=== PATIENT | female | born 1965 | race Caucasian/White ===

== ENCOUNTER 2017-01-25 05:40 | Day surgery (SDC) | payer BC ==
[2017-01-25] MEDS ORDERED: Versed 2 MG/2 ML Injection IV ONE (05:41)
[2017-01-25] MEDS ORDERED: DIPRIVAN 200 MG/20 ML IV ONE (05:41)
[2017-01-25] MEDS ORDERED: Lactated Ringers 1,000 ML IV SCH (06:00)
[2017-01-25] MEDS ORDERED: Lactated Ringers 1,000 ML IV ONE (06:21)
[2017-01-25 09:38] VITALS: O2SAT 98
[2017-01-25 09:50] VITALS: BP 111/76; PULSE 70
--- NOTE | 2017-01-25 12:35 | OP ---
SURGERY DATE/TIME: 01/25/2017 0807 PREOPERATIVE DIAGNOSIS: Screening exam. POSTOPERATIVE DIAGNOSIS: Normal colon. PROCEDURE: Colonoscopy. SURGEON: Dr. Jimenez. ANESTHESIA: MAC. Medications given by anesthesia department. HISTORY: The patient is a 51 year-old white female presenting now for colonoscopic evaluation. She was appraised of the risks of the procedure including the risk of perforation, phlebitis, untoward reaction to medication, bleeding and missed lesions. The patient verbalized her understanding and desired to have the procedure performed. DESCRIPTION OF PROCEDURE: The patient was given the medications by the anesthesia department. She had continuous pulse oximetry, ECG monitoring, intermittent blood pressure monitoring, and tidal CO2 monitoring during the examination. She was placed in the left lateral decubitus position. A digital rectal examination was performed and revealed normal anal sphincter tone and no masses. The flexible Olympus pediatric colonoscope was used to intubate the rectum. A view of the colon was developed sequentially to the cecum. Upon insertion and withdrawal, including a retroflex view in the rectum, no mucosal lesions were encountered. The scope was removed from the patient who tolerated the procedure well and was sent back to OP recovery in good condition. The prep was noted to be fair. It was also noted that the colon is very tortuous and difficult to examination.
== END 2017-01-25 09:59 | disposition home or self-care (01) ==
LOC: SDC 05:40
PROVIDERS: ATTEND Family Medicine
PROC: 0DJD8ZZ Inspection of Lower Intestinal Tract, Via Natural or Artificial Opening Endoscopic (ICD-10-PCS; principal; 2017-01-25)
DX: Z12.11 Encounter for screening for malignant neoplasm of colon (principal)
CPT/HCPCS: 00810; J2250; J2704

== ENCOUNTER 2021-05-02 11:22 | Inpatient (IN) | payer MEDICARE, BC ==
[2021-05-02] MEDS ORDERED: Sodium Chloride 0.9% 1000 ML 1,000 ML IV STA ×2 (11:48→14:15)
[2021-05-02] MEDS ORDERED: solu-MEDROL 125 MG, Sterile H2O 10 ml 2 ML IV ONE ×2 (11:48)
[2021-05-02] MEDS ORDERED: Sodium Chloride 0.9% 1000 ML 1,000 ML ONE ×2 (11:53→14:08)
[2021-05-02] MEDS ORDERED: solu-MEDROL ONE (11:53)
[2021-05-02] MEDS ORDERED: Sterile H2O 10 ml IJ ONE (11:53)
[2021-05-02 12:01] LABS: Hematocrit 47.2 % (35-47); Hemoglobin 15.9 gm/dl (12.0-16.0); Mean Cell Volume 90.4 fl (78-100); Mean Corpuscular Hemoglobin 30.5 pg (26-32); Mean Corpuscular Hgb Concent. 33.7 g/dl (32-36); Mean Platelet Volume 10.2 fl (7.5-11.0); Platelet Count 215 K/mm3 (150-450); Red Blood Count 5.22 M/mm3 (4.1-5.4); Red Cell Distribution Width 13.1 % (11.5-14.0); White Blood Count 4.6 K/mm3 (4.0-10.5)
--- NOTE | 2021-05-02 12:12 | XRAY ---
Indication: Cough. Suspect Covid 19. The graft comparison: February 22, 2020. Portable chest demonstrates new subtle right mid to lower lung hazy interstitial alveolar opacity without consolidation/large effusion. Stable minimal left base fibrosis/scarring. Remaining heart and upper lungs unremarkable. Bony thorax intact again with mild osteopenia and degenerative changes.
[2021-05-02 12:40] LABS: INFLUENZA A NEGATIVE (NEGATIVE); INFLUENZA B NEGATIVE (NEGATIVE)
[2021-05-02 12:49] LABS: INR 1.04 (0.8-3.0); PROTIME 12.3 SECONDS (9.4-12.5)
--- NOTE | 2021-05-02 13:53 | ERPHSYRPT ---
- History of Present Illness Time Seen by Provider: 05/02/21 11:55 Source: patient Exam Limitations: clinical condition Patient Subjective Stated Complaint: pt sent from clinic for [facility], pt co weakness,not eating or drinking well, cough. pt states she has not felt well for over a week, Triage Nursing Assessment: pt arrived per wc. alert, weak appearing, able to get self undressed, resp easy, occ cough, face mask in place, no edema noted Physician History: Patient is a 56-year-old female who presents with multiple complaints. She tested positive for COVID over a week ago she complains of no appetite no fluid intake or at least reduced fluid intake weakness cough started today she has not checked her fever but she has had chills she was noted to be hypotensive at the [facility] she was sent here directly from the clinic. Timing/Duration: day(s) (10) Cough Quality/Degree: productive cough Modifying Factors: Improves With: coughing Associated Symptoms: chills, chest pain/soreness, cough, headache, nasal congestion, nasal drainage, shortness of breath, wheezing Allergies/Adverse Reactions: No Known Drug Allergies Allergy (Verified 05/02/21 11:52) Home Medications: Venlafaxine HCl [Effexor] 150 mg PO DAILY 04/10/13 [History] Estradiol [Estrace] 1 ea DAILY 05/02/21 [History] Methimazole 5 ea DAILY 05/02/21 [History] Semaglutide [Ozempic] 1 ea UD 05/02/21 [History] clonazePAM [Clonazepam] 1 ea DAILY 05/02/21 [History] Hx Tetanus, Diphtheria Vaccination/Date Given: No Hx Influenza Vaccination/Date Given: No Hx Pneumococcal Vaccination/Date Given: No Immunizations Up to Date: Yes Travel Risk - International Travel Have you traveled outside of the country in past 3 weeks: No - Coronavirus Screening Are you exhibiting any of the following symptoms?: Yes Symptoms: Cough: New Onset, Headaches/Body Aches/Fatigue Close contact with a COVID-19 positive Pt in past 14-21 Days: No - Vaccine Status Have you recieved a Covid-19 vaccination: No - Review of Systems Constitutional: Chills, Lethargy, Malaise, No Fever Eyes: No Symptoms Ears, Nose, & Throat: Nose Congestion, Nose Discharge Respiratory: Cough, Dyspnea Cardiac: Chest Pain, No Edema, No Syncope Abdominal/Gastrointestinal: Nausea, No Abdominal Pain, No Vomiting, No Diarrhea Genitourinary Symptoms: No Dysuria Musculoskeletal: No Back Pain, No Neck Pain Skin: No Rash Neurological: No Dizziness, No Focal Weakness, No Sensory Changes Psychological: No Symptoms Endocrine: No Symptoms All Other Systems: Reviewed and Negative - Past Medical History Pertinent Past Medical History: Yes Neurological History: No Pertinent History ENT History: No Pertinent History Cardiac History: No Pertinent History Respiratory History: No Pertinent History Endocrine Medical History: No Pertinent History Musculoskeletal History: No Pertinent History GI Medical History: No Pertinent History History: No Pertinent History Psycho-Social History: Anxiety, Depression Female Reproductive Disorders: No Pertinent History Other Medical History: hx of skin cancer. - Past Surgical History Past Surgical History: Yes Neuro Surgical History: No Pertinent History Cardiac: No Pertinent History Respiratory: No Pertinent History Gastrointestinal: No Pertinent History Genitourinary: No Pertinent History Musculoskeletal: No Pertinent History Female Surgical History: Section, Hysterectomy - Social History Smoking Status: Never smoker Exposure to second hand smoke: No Drug Use: none Patient Lives Alone: No - Female History Hx Last Menstrual Period: post - Nursing Vital Signs Nursing Vital Signs: Initial Vital Signs Temperature 97.8 F 05/02/21 11:41 Pulse Rate 75 05/02/21 11:41 Respiratory Rate 20 05/02/21 11:41 Blood Pressure 95/63 05/02/21 11:41 O2 Sat by Pulse Oximetry 97 05/02/21 11:41 Pain Scale Pain Intensity 5 - Physical Exam General Appearance: moderate distress Eye Exam: PERRL/EOMI, eyes nml inspection Ears, Nose, Throat Exam: normal ENT inspection, TMs normal, pharynx normal, moist mucous membranes Neck Exam: normal inspection, non-tender, supple, full range of motion Respiratory Exam: diminished breath sounds, crackles/rales, rhonchi, wheezing Cardiovascular Exam: regular rate/rhythm, normal heart sounds Gastrointestinal/Abdomen Exam: soft, No tenderness Back Exam: normal inspection, No CVA tenderness, No vertebral tenderness Extremity Exam: normal inspection, normal range of motion Neurologic Exam: alert, oriented x 3, cooperative, normal mood/affect, sensation nml, No motor deficits SpO2: 94 - Course Nursing assessment & vital signs reviewed: Yes - Radiology Exams Chest X-ray Interpretation: Reviewed by me (There is a developing pneumonia in the right middle lower lobe) Ordered Tests: Active Orders 24 hr Category Date Time Status EKG-ER Only STAT Care 05/02/21 11:48 Active IV Insertion STAT Care 05/02/21 11:48 Active CHEST 1 VIEW (PORTABLE) Stat Exams 05/02/21 11:49 Completed BLOOD CULTURE Stat Lab 05/02/21 11:45 Received CBC W DIFF Stat Lab 05/02/21 11:45 Completed CMP Stat Lab 05/02/21 11:45 Received D-DIMER QUANTITATIVE Stat Lab 05/02/21 11:45 Received INFLUENZA A+B NATHAN Stat Lab 05/02/21 12:06 Completed Lactic Acid Stat Lab 05/02/21 11:48 Completed MAGNESIUM Stat Lab 05/02/21 11:45 Received Manual Differential NC Stat Lab 05/02/21 11:45 Completed NT PRO BNP Stat Lab 05/02/21 11:45 Received PROTIME WITH INR Stat Lab 05/02/21 11:45 Received TROPONIN Q3H Lab 05/02/21 11:45 Received TROPONIN Q3H Lab 05/02/21 15:00 Ordered TROPONIN Q3H Lab 05/02/21 18:00 Ordered TROPONIN Q3H Lab 05/02/21 21:00 Ordered TROPONIN Q3H Lab 05/03/21 00:00 Ordered UA W/RFX UR CULTURE Stat Lab 05/02/21 11:49 Ordered Medication Summary Discontinued Medications Generic Name Dose Route Start Last Admin Trade Name Freq PRN Reason Stop Dose Admin Methylprednisolone Sodium 0 mg 05/02/21 11:48 05/02/21 11:55 Succinate 125 mg/ Sterile IV 05/02/21 11:49 125 mg Water 2 ml STAT ONE Administration Sodium Chloride 1,000 mls @ 999 mls/hr 05/02/21 11:48 05/02/21 13:14 Sodium Chloride 0.9% 1000 Ml IV 05/02/21 12:48 Infused .Q1H1M STA Infusion Sodium Chloride Confirm 05/02/21 11:53 Sodium Chloride 0.9% 1000 Ml Administered 05/02/21 11:54 Dose 1,000 mls @ ud .ROUTE .STK-MED ONE Methylprednisolone Sodium Succinate Confirm 05/02/21 11:53 Methylprednis Sod Succ 125 Mg/2 Ml Vial Administered 05/02/21 11:54 Dose 125 mg .ROUTE .STK-MED ONE Sterile Water Confirm 05/02/21 11:53 Water For Injection,Sterile 10 Ml Vial Administered 05/02/21 11:54 Dose 10 ml IJ .STK-MED ONE Lab/Rad Data: Laboratory Result Diagrams 05/02/21 11:45 Laboratory Results 05/02/21 05/02/21 05/02/21 Range/Units 12:06 11:48 11:45 WBC 4.6 (4.0-10.5) K/mm3 RBC 5.22 (4.1-5.4) M/mm3 Hgb 15.9 (12.0-16.0) gm/dl Hct 47.2 H (35-47) % MCV 90.4 (78-100) fl MCH 30.5 (26-32) pg MCHC 33.7 (32-36) g/dl RDW 13.1 (11.5-14.0) % Plt Count 215 (150-450) K/mm3 MPV 10.2 (7.5-11.0) fl Lactic Acid 1.4 (0.4-2.0) Influenza Type A Ag NEGATIVE (NEGATIVE) Influenza Type B Ag NEGATIVE (NEGATIVE) - Progress Progress: unchanged Air Movement: fair Blood Culture(s) Obtained: Yes Antibiotics given: Yes Discussed with : Serafin Will see patient in: hospital (full admit) - Departure Departure Disposition: In-patient Admission Clinical Impression: Pneumonia due to COVID-19 virus Condition: Fair Critical Care Time: No Referrals: BEKAH AYALA, [Primary Care Provider] - Follow up/PCP as directed
[2021-05-02] MEDS ORDERED: Zithromax 500 MG/ 250 ML NaCl Premix 500 MG/250 ML IVPB IV ONE (14:11)
[2021-05-02] MEDS ORDERED: ENOXAPARIN SODIUM SQ ONE (14:11)
[2021-05-02] MEDS: ENOXAPARIN SODIUM SQ SCH (14:12)
[2021-05-02] MEDS: Zithromax 500 MG/ 250 ML NaCl Premix 500 MG/250 ML IVPB IV SCH (14:13)
[2021-05-02 15:30] LABS: Appearance SLIGHTLY CLOUDY (CLEAR); Bacteria FEW /HPF (NEGATIVE); Bilirubin NEGATIVE (NEGATIVE); Blood NEGATIVE Ery/ul (0-5); Epithelial Cells FEW /HPF (FEW); Glucose NEGATIVE (NEGATIVE); Ketones TRACE (NEGATIVE); Leukocyte Esterase NEGATIVE (NEGATIVE); Mucus SLIGHT /HPF (NEGATIVE); Nitrite NEGATIVE (NEGATIVE); Protein,Urine Dip 30 (Negative); RBC 0-2 /HPF (0-2); Specific Gravity 1.015 (1.005-1.025); Urobilinogen NEGATIVE mg/dL (0-1); WBC 26-50 /HPF (0-5)
[2021-05-02] MEDS ORDERED: Ativan 2 MG/1 ML VIAL IV PRN (16:38)
[2021-05-02] MEDS ORDERED: Zofran 4 MG/2 ML VIAL IV PRN (16:38)
[2021-05-02] MEDS ORDERED: FEVERALL 650 MG PR PRN (16:38)
--- NOTE | 2021-05-02 17:27 | PCM.HP ---
History of Present Illness - Chief Complaint Chief Complaint: shortness off breath for 2-3 days History of Present Illness: is a 56 year old female. who presents with multiple complaints. She tested positive for COVID over a week ago she complains of no appetite no fluid intake or at least reduced fluid intake weakness cough started today she has not checked her fever but she has had chills she was noted to be hypotensive at the [facility] she was sent here directly from the clinic. Timing/Duration: day(s) (10) Cough Quality/Degree: productive cough Modifying Factors: Improves With: coughing Associated Symptoms: chills, chest pain/soreness, cough, headache, nasal congestion, nasal drainage, shortness of breath, wheezing - Review of Systems Constitutional: No Fever, No Chills Eyes: No Symptoms Ears, Nose, & Throat: No Symptoms Respiratory: Orthopnea, Short Of Breath, Wheezing, No Cough Cardiac: No Chest Pain, No Edema, No Syncope Abdominal/Gastrointestinal: Nausea, Appetite Changes, No Abdominal Pain, No Vomiting, No Diarrhea Genitourinary Symptoms: No Dysuria Musculoskeletal: No Back Pain, No Neck Pain Skin: No Rash Neurological: No Dizziness, No Focal Weakness, No Sensory Changes Psychological: No Symptoms Endocrine: No Symptoms Hematologic/Lymphatic: No Symptoms Immunological/Allergic: No Symptoms Medications & Allergies Home Medications: Home Medication List Venlafaxine HCl [Effexor] 150 mg PO DAILY 04/10/13 [History Confirmed 05/02/21] Estradiol [Estrace] 1 ea PO DAILY 05/02/21 [History Confirmed 05/02/21] Methimazole 2.5 ea PO DAILY 05/02/21 [History Confirmed 05/02/21] Omeprazole Magnesium [Prilosec Otc] 20 mg PO DAILY 05/02/21 [History Confirmed 05/02/21] Trazodone HCl 50 mg [Desyrel 50 mg] 100 mg PO QHS 05/02/21 [History Confirmed 05/02/21] clonazePAM [Clonazepam] 1 mg PO TID 05/02/21 [History Confirmed 05/02/21] Allergies/Adverse Reactions: Allergies Allergy/AdvReac Type Severity Reaction Status Date / Time No Known Drug Allergies Allergy Verified 05/02/21 16:34 - Past Medical History Past Medical History: Yes Neurological History: No Pertinent History ENT History: No Pertinent History Cardiac History: No Pertinent History Respiratory History: No Pertinent History Endocrine Medical History: Hyperthyroidism Musculoskelatal History: No Pertinent History GI Medical History: GERD History: No Pertinent History Pyscho-Social History: Anxiety, Depression Reproductive Disorders: No Pertinent History Comment: hx of skin cancer. - Female History Hx Last Menstrual Period: post - Past Surgical History Past Surgical History: Yes Neuro Surgical History: No Pertinent History Cardiac History: No Pertinent History Respiratory Surgery: No Pertinent History GI Surgical History: No Pertinent History Genitourinary Surgical Hx: No Pertinent History Musculskeletal Surgical Hx: No Pertinent History Female Surgical History: Section, Hysterectomy Other Surgical History: Broken nose with surgery, Left shoulder plate due to broken scapula - Social History Smoking Status: Never smoker Exposure to second hand smoke: No Alcohol: Rarely Drug Use: none - Physical Exam Vital Signs: Vital Signs - 24 hr Temp Pulse Resp BP Pulse Ox 05/02/21 17:12 76 18 95 05/02/21 13:52 94 L 05/02/21 13:14 72 22 101/73 94 L 05/02/21 11:51 20 96 05/02/21 11:41 97.8 F 75 20 95/63 97 General Appearance: no apparent distress, alert Neurologic Exam: alert, oriented x 3, cooperative, normal mood/affect, nml cerebellar function, nml station & gait, sensation nml, No motor deficits Eye Exam: PERRL/EOMI, eyes nml inspection Ears, Nose, Throat Exam: normal ENT inspection, TMs normal, pharynx normal, moist mucous membranes Neck Exam: normal inspection, non-tender, supple, full range of motion Respiratory Exam: diminished breath sounds, crackles/rales, rhonchi, wheezing, No respiratory distress Cardiovascular Exam: regular rate/rhythm, normal heart sounds, normal peripheral pulses Gastrointestinal/Abdomen Exam: soft, normal bowel sounds, No tenderness, No mass Back Exam: normal inspection, normal range of motion, No CVA tenderness, No vertebral tenderness Extremity Exam: normal inspection, normal range of motion, pelvis stable Skin Exam: normal color, warm, dry, No rash Lymphatic Exam: No adenopathy Results - Labs Lab/Micro Results: Lab Results-Last 24 Hours 05/02/21 05/02/21 05/02/21 Range/Units 11:45 11:45 11:45 WBC 4.6 (4.0-10.5) K/mm3 RBC 5.22 (4.1-5.4) M/mm3 Hgb 15.9 (12.0-16.0) gm/dl Hct 47.2 H (35-47) % MCV 90.4 (78-100) fl MCH 30.5 (26-32) pg MCHC 33.7 (32-36) g/dl RDW 13.1 (11.5-14.0) % Plt Count 215 (150-450) K/mm3 MPV 10.2 (7.5-11.0) fl PT 12.3 (9.4-12.5) SECONDS INR 1.04 (0.8-3.0) D-Dimer 726 H* (215-500) ng/mL Glucose CANAL 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 Lactic Acid (0.4-2.0) Troponin I (0.000-0.034) ng/mL Urine Color (YELLOW) Urine Appearance (CLEAR) Urine pH (5-6) Ur Specific [place] (1.005-1.025) Urine Protein (Negative) Urine Ketones (NEGATIVE) Urine Blood (0-5) Sarkis/ul Urine Nitrite (NEGATIVE) Urine Bilirubin (NEGATIVE) Urine Urobilinogen (0-1) mg/dL Ur Leukocyte Esterase (NEGATIVE) Urine WBC (Auto) (0-5) /HPF Urine RBC (Auto) (0-2) /HPF U Hyaline Cast (Auto) (0-2) /LPF U Epithel Cells (Auto) (FEW) /HPF Urine Bacteria (Auto) (NEGATIVE) /HPF Urine Mucus (Auto) (NEGATIVE) /HPF Urine Culture Reflexed (NO) Urine Glucose (NEGATIVE) mg/dL Influenza Type A Ag (NEGATIVE) Influenza Type B Ag (NEGATIVE) 05/02/21 05/02/21 05/02/21 Range/Units 11:45 11:48 12:06 WBC (4.0-10.5) K/mm3 RBC (4.1-5.4) M/mm3 Hgb (12.0-16.0) gm/dl Hct (35-47) % MCV (78-100) fl MCH (26-32) pg MCHC (32-36) g/dl RDW (11.5-14.0) % Plt Count (150-450) K/mm3 MPV (7.5-11.0) fl PT (9.4-12.5) SECONDS INR (0.8-3.0) D-Dimer (215-500) ng/mL Glucose Lactic Acid 1.4 (0.4-2.0) Troponin I < 0.012 (0.000-0.034) ng/mL Urine Color (YELLOW) Urine Appearance (CLEAR) Urine pH (5-6) Ur Specific [place] (1.005-1.025) Urine Protein (Negative) Urine Ketones (NEGATIVE) Urine Blood (0-5) Sarkis/ul Urine Nitrite (NEGATIVE) Urine Bilirubin (NEGATIVE) Urine Urobilinogen (0-1) mg/dL Ur Leukocyte Esterase (NEGATIVE) Urine WBC (Auto) (0-5) /HPF Urine RBC (Auto) (0-2) /HPF U Hyaline Cast (Auto) (0-2) /LPF U Epithel Cells (Auto) (FEW) /HPF Urine Bacteria (Auto) (NEGATIVE) /HPF Urine Mucus (Auto) (NEGATIVE) /HPF Urine Culture Reflexed (NO) Urine Glucose (NEGATIVE) mg/dL Influenza Type A Ag NEGATIVE (NEGATIVE) Influenza Type B Ag NEGATIVE (NEGATIVE) 05/02/21 05/02/21 Range/Units 15:00 15:20 WBC (4.0-10.5) K/mm3 RBC (4.1-5.4) M/mm3 Hgb (12.0-16.0) gm/dl Hct (35-47) % MCV (78-100) fl MCH (26-32) pg MCHC (32-36) g/dl RDW (11.5-14.0) % Plt Count (150-450) K/mm3 MPV (7.5-11.0) fl PT (9.4-12.5) SECONDS INR (0.8-3.0) D-Dimer (215-500) ng/mL Glucose Lactic Acid (0.4-2.0) Troponin I < 0.012 (0.000-0.034) ng/mL Urine Color YELLOW (YELLOW) Urine Appearance SLIGHTLY CLOUDY (CLEAR) Urine pH 5.0 (5-6) Ur Specific [place] 1.015 (1.005-1.025) Urine Protein 30 (Negative) Urine Ketones TRACE (NEGATIVE) Urine Blood NEGATIVE (0-5) Sarkis/ul Urine Nitrite NEGATIVE (NEGATIVE) Urine Bilirubin NEGATIVE (NEGATIVE) Urine Urobilinogen NEGATIVE (0-1) mg/dL Ur Leukocyte Esterase NEGATIVE (NEGATIVE) Urine WBC (Auto) 26-50 (0-5) /HPF Urine RBC (Auto) 0-2 (0-2) /HPF U Hyaline Cast (Auto) 11-25 (0-2) /LPF U Epithel Cells (Auto) FEW (FEW) /HPF Urine Bacteria (Auto) FEW (NEGATIVE) /HPF Urine Mucus (Auto) SLIGHT (NEGATIVE) /HPF Urine Culture Reflexed YES (NO) Urine Glucose NEGATIVE (NEGATIVE) mg/dL Influenza Type A Ag (NEGATIVE) Influenza Type B Ag (NEGATIVE) - Radiology Impressions Radiology Exams & Impressions: Radiology Procedures Category Date Time Status CHEST 1 VIEW (PORTABLE) Stat Exams 05/02/21 11:49 Completed 0023 RAD/CHEST 1 VIEW (PORTABLE) Indication: Cough. Suspect Covid 19. The graft comparison: February 22, 2020. Portable chest demonstrates new subtle right mid to lower lung hazy interstitial alveolar opacity without consolidation/large effusion. Stable minimal left base fibrosis/scarring. Remaining heart and upper lungs unremarkable. Bony thorax intact again with mild osteopenia and degenerative changes. Assessment/Plan (1) Pneumonia due to COVID-19 virus Current Visit: Yes Status: Acute Assessment & Plan: Allergies Allergy/AdvReac Type Severity Reaction Status Date / Time No Known Drug Allergies Allergy Verified 05/02/21 16:34 Vital Signs (Last 24 hours) Temp Pulse Resp BP Pulse Ox 05/02/21 17:12 76 18 95 05/02/21 13:52 94 L 05/02/21 13:14 72 22 101/73 94 L 05/02/21 11:51 20 96 05/02/21 11:41 97.8 F 75 20 95/63 97 Home Medications Medication Instructions Recorded Confirmed Last Taken Type Estradiol [Estrace] 1 ea PO DAILY 05/02/21 05/02/21 Unknown History Methimazole 2.5 ea PO DAILY 05/02/21 05/02/21 Unknown History Omeprazole Magnesium [Prilosec Otc] 20 mg PO DAILY 05/02/21 05/02/21 Unknown History Trazodone HCl 50 mg [Desyrel 50 100 mg PO QHS 05/02/21 05/02/21 Unknown History mg] clonazePAM [Clonazepam] 1 mg PO TID 05/02/21 05/02/21 Unknown History Current Medications Generic Name Dose Route Start Last Admin Trade Name Freq PRN Reason Stop Dose Admin Acetaminophen 500 - 1,000 mg 05/02/21 16:38 Acetaminophen 500 Mg Tablet PO 06/01/21 16:37 Q4H PRN PRN Temp > 100.4 Orally Acetaminophen 650 mg 05/02/21 16:38 Acetaminophen 650 Mg Supp.Rect TN 06/01/21 16:37 Q4H PRN PRN Temp > 100.4 Orally Chlorphenir/Hydrocodone Polistirex 5 ml 05/02/21 16:38 Hydrocodone/Chlorphen P-Stirex 1 Ml Marley.Er.12h PO 06/01/21 16:37 [id number] PRN COUGH Dexamethasone Sodium Phosphate 8 mg 05/03/21 10:00 Dexamethasone Sod Phosphate 10 Mg/Ml IV 05/13/21 09:59 DAILY KAY Enoxaparin Sodium 40 mg 05/03/21 10:00 05/02/21 14:12 Enoxaparin Sodium 40 Mg/0.4 Ml Syringe SQ 06/02/21 09:59 40 mg DAILY KAY Administration Azithromycin 500 mg in 250 mls @ 250 mls/hr 05/03/21 10:00 05/02/21 15:34 Zithromax 500 Mg/ 250 Ml Nacl Premix IV 06/02/21 09:59 Infused Q24H10 KAY Infusion Remdesivir 200 mg/ Sodium 250 mls @ 125 mls/hr 05/02/21 18:00 Chloride IV 05/02/21 19:59 ONCE ONE Remdesivir 100 mg/ Sodium 100 mls @ 100 mls/hr 05/03/21 18:00 Chloride IV 05/06/21 18:59 Q24H KAY Sodium Chloride 1,000 mls @ 125 mls/hr 05/02/21 17:00 Sodium Chloride 0.9% 1000 Ml IV 06/01/21 16:59 .Q8H KAY Lorazepam 1 mg 05/02/21 16:38 Lorazepam 2 Mg/1 Ml 2 Mg Vial IV 06/01/21 16:37 Q4H PRN PRN Anxiety/Sleep Lorazepam 1 mg 05/02/21 16:38 Lorazepam 1 Mg Tablet PO 06/01/21 16:37 Q4H PRN PRN Anxiety/Sleep Ondansetron HCl 4 mg 05/02/21 16:38 Ondansetron Hcl 4 Mg/2 Ml Vial IV 06/01/21 16:37 Q6H PRN PRN NAUSEA/VOMITING Discontinued Medications Generic Name Dose Route Start Last Admin Trade Name Freq PRN Reason Stop Dose Admin Methylprednisolone Sodium 0 mg 05/02/21 11:48 05/02/21 11:55 Succinate 125 mg/ Sterile IV 05/02/21 11:49 125 mg Water 2 ml STAT ONE Administration Enoxaparin Sodium Confirm 05/02/21 14:11 Enoxaparin Sodium 80 Mg/0.8 Ml Syringe Administered 05/02/21 14:12 Dose 80 mg SQ .STK-MED ONE Sodium Chloride 1,000 mls @ 999 mls/hr 05/02/21 11:48 05/02/21 13:14 Sodium Chloride 0.9% 1000 Ml IV 05/02/21 12:48 Infused .Q1H1M STA Infusion Sodium Chloride Confirm 05/02/21 11:53 Sodium Chloride 0.9% 1000 Ml Administered 05/02/21 11:54 Dose 1,000 mls @ ud .ROUTE .STK-MED ONE Sodium Chloride Confirm 05/02/21 14:08 Sodium Chloride 0.9% 1000 Ml Administered 05/02/21 14:09 Dose 1,000 mls @ ud .ROUTE .STK-MED ONE Azithromycin Confirm 05/02/21 14:11 Zithromax 500 Mg/ 250 Ml Nacl Premix Administered 05/02/21 14:12 Dose 500 mg in 250 mls @ ud IV .STK-MED ONE Sodium Chloride 1,000 mls @ 999 mls/hr 05/02/21 14:15 05/02/21 15:34 Sodium Chloride 0.9% 1000 Ml IV 05/02/21 15:15 Infused .Q1H1M STA Infusion Methylprednisolone Sodium Succinate Confirm 05/02/21 11:53 Methylprednis Sod Succ 125 Mg/2 Ml Vial Administered 05/02/21 11:54 Dose 125 mg .ROUTE .STK-MED ONE Sterile Water Confirm 05/02/21 11:53 Water For Injection,Sterile 10 Ml Vial Administered 05/02/21 11:54 Dose 10 ml IJ .STK-MED ONE Intake & Output (Last 24 hours) 04/30/21 05/01/21 05/02/21 05/03/21 11:59 11:59 11:59 11:59 Weight 70 kg 70 kg Microbiology Results (Last 24 hours) 05/02/21 15:00 Clean Catch Midstream Urine Culture - Pending 05/02/21 11:45 Blood Blood Culture Gram Stain - Pending 05/02/21 11:45 Blood Blood Culture - Pending 05/02/21 11:40 Blood Blood Culture Gram Stain - Pending 05/02/21 11:40 Blood Blood Culture - Pending Laboratory Results (Last 24 hours) 05/02/21 05/02/21 05/02/21 15:20 15:00 12:06 WBC RBC Hgb Hct MCV MCH MCHC RDW Plt Count MPV PT INR D-Dimer Glucose Lactic Acid Troponin I < 0.012 Urine Color YELLOW Urine Appearance SLIGHTLY CLOUDY Urine pH 5.0 Ur Specific [place] 1.015 Urine Protein 30 Urine Ketones TRACE Urine Blood NEGATIVE Urine Nitrite NEGATIVE Urine Bilirubin NEGATIVE Urine Urobilinogen NEGATIVE Ur Leukocyte Esterase NEGATIVE Urine WBC (Auto) 26-50 Urine RBC (Auto) 0-2 U Hyaline Cast (Auto) 11-25 U Epithel Cells (Auto) FEW Urine Bacteria (Auto) FEW Urine Mucus (Auto) SLIGHT Urine Culture Reflexed YES Urine Glucose NEGATIVE Influenza Type A Ag NEGATIVE Influenza Type B Ag NEGATIVE 05/02/21 05/02/21 05/02/21 11:48 11:45 11:45 WBC RBC Hgb Hct MCV MCH MCHC RDW Plt Count MPV PT 12.3 INR 1.04 D-Dimer 726 H* Glucose Lactic Acid 1.4 Troponin I < 0.012 Urine Color Urine Appearance Urine pH Ur Specific [place] Urine Protein Urine Ketones Urine Blood Urine Nitrite Urine Bilirubin Urine Urobilinogen Ur Leukocyte Esterase Urine WBC (Auto) Urine RBC (Auto) U Hyaline Cast (Auto) U Epithel Cells (Auto) Urine Bacteria (Auto) Urine Mucus (Auto) Urine Culture Reflexed Urine Glucose Influenza Type A Ag Influenza Type B Ag 05/02/21 05/02/21 11:45 11:45 WBC 4.6 RBC 5.22 Hgb 15.9 Hct 47.2 H MCV 90.4 MCH 30.5 MCHC 33.7 RDW 13.1 Plt Count 215 MPV 10.2 PT INR D-Dimer Glucose CANAL 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 Lactic Acid Troponin I Urine Color Urine Appearance Urine pH Ur Specific [place] Urine Protein Urine Ketones Urine Blood Urine Nitrite Urine Bilirubin Urine Urobilinogen Ur Leukocyte Esterase Urine WBC (Auto) Urine RBC (Auto) U Hyaline Cast (Auto) U Epithel Cells (Auto) Urine Bacteria (Auto) Urine Mucus (Auto) Urine Culture Reflexed Urine Glucose Influenza Type A Ag Influenza Type B Ag Orders (Last 24 hours) Category Date Time Status Up Ad Cookie TOLERATED Activity 05/02/21 16:23 Active Up Ad Cookie ROUTINE Activity 05/02/21 13:53 Active Admit as Inpatient ROUTINE Care 05/02/21 13:53 Active IV Care Q6H Care 05/02/21 13:53 Active IV Insertion STAT Care 05/02/21 11:48 Completed Isolation, Initiate & Maintain Q6H Care 05/02/21 13:53 Active POCT Glucose Check ACHS Care 05/02/21 13:53 Completed Vinicio Champagne, [place] ROUTINE Care 05/02/21 13:53 Active Weight,Daily 0600 Care 05/02/21 13:53 Active Clear Liquid Diet 05/02/21 Dinner Active Clear Liquid Diet 05/02/21 Dinner Completed CHEST 1 VIEW (PORTABLE) Stat Exams 05/02/21 11:49 Completed BLOOD CULTURE Stat Lab 05/02/21 11:45 Received BNP [NT PRO BNP] AM.LAB Lab 05/03/21 04:00 Ordered CBC AM.LAB Lab 05/03/21 04:00 Ordered CBC AM.LAB Lab 05/04/21 04:00 Ordered CBC AM.LAB Lab 05/05/21 04:00 Ordered CBC AM.LAB Lab 05/06/21 04:00 Ordered CBC AM.LAB Lab 05/07/21 04:00 Ordered CBC AM.LAB Lab 05/08/21 04:00 Ordered CBC AM.LAB Lab 05/09/21 04:00 Ordered CBC AM.LAB Lab 05/10/21 04:00 Ordered CBC W DIFF Stat Lab 05/02/21 11:45 Completed CMP AM.LAB Lab 05/03/21 04:00 Ordered CMP AM.LAB Lab 05/04/21 04:00 Ordered CMP AM.LAB Lab 05/05/21 04:00 Ordered CMP AM.LAB Lab 05/06/21 04:00 Ordered CMP AM.LAB Lab 05/07/21 04:00 Ordered CMP AM.LAB Lab 05/08/21 04:00 Ordered CMP AM.LAB Lab 05/09/21 04:00 Ordered CMP AM.LAB Lab 05/10/21 04:00 Ordered CMP Stat Lab 05/02/21 11:45 Completed CULTURE,URINE Stat Lab 05/02/21 15:00 Received D-DIMER QUANTITATIVE AM.LAB Lab 05/03/21 04:00 Ordered D-DIMER QUANTITATIVE AM.LAB Lab 05/04/21 04:00 Ordered D-DIMER QUANTITATIVE AM.LAB Lab 05/05/21 04:00 Ordered D-DIMER QUANTITATIVE AM.LAB Lab 05/06/21 04:00 Ordered D-DIMER QUANTITATIVE AM.LAB Lab 05/07/21 04:00 Ordered D-DIMER QUANTITATIVE AM.LAB Lab 05/08/21 04:00 Ordered D-DIMER QUANTITATIVE AM.LAB Lab 05/09/21 04:00 Ordered D-DIMER QUANTITATIVE AM.LAB Lab 05/10/21 04:00 Ordered D-DIMER QUANTITATIVE Stat Lab 05/02/21 11:45 Completed INFLUENZA A+B NATHAN Stat Lab 05/02/21 12:06 Completed Lactic Acid Stat Lab 05/02/21 11:48 Completed MAGNESIUM Stat Lab 05/02/21 11:45 Completed Manual Differential NC Stat Lab 05/02/21 11:45 Completed NT PRO BNP Stat Lab 05/02/21 11:45 Completed PROTIME WITH INR Stat Lab 05/02/21 11:45 Completed TROPONIN Q3H Lab 05/02/21 11:45 Completed TROPONIN Q3H Lab 05/02/21 15:20 Completed TROPONIN Q3H Lab 05/02/21 18:00 Ordered TROPONIN Q3H Lab 05/02/21 21:00 Ordered TROPONIN Q3H Lab 05/03/21 00:00 Ordered UA W/RFX UR CULTURE Stat Lab 05/02/21 15:00 Completed Acetaminophen 500 mg [Tylenol Extra Strength 500 mg* Med 05/02/21 16:38 Active ] 500 - 1,000 mg PO Q4H PRN PRN Acetaminophen 650 mg [Feverall 650 mg] Med 05/02/21 16:38 Active 650 mg TN Q4H PRN PRN Azithromycin 500 mg/250 ml [Zithromax 500 MG/ 250 ML Med 05/03/21 10:00 Active NaCl Premix] 500 mg in 250 ml IV Q24H10 Azithromycin 500 mg/250 ml [Zithromax 500 MG/ 250 ML Med 05/02/21 14:11 Discontinued NaCl Premix] 500 mg in 250 ml IV UD Dexamethasone Sod Phosphate [Decadron 10Mg Inj.] Med 05/03/21 10:00 Active 8 mg IV DAILY Enoxaparin Sodium [Enoxaparin Sodium] Med 05/03/21 10:00 Active 40 mg SQ DAILY Enoxaparin Sodium [Enoxaparin Sodium] Med 05/02/21 14:11 Discontinued 80 mg SQ .STK-MED ONE Hydrocodone/Chlorphen P-Stirex [Hydrocodone-Chlorphen Med 05/02/21 16:38 Active ER Susp] 5 ml PO [id number] PRN Lorazepam 1 mg [Ativan 1 MG] Med 05/02/21 16:38 Active 1 mg PO Q4H PRN PRN Lorazepam 2 mg/1 ml [Ativan 2 MG/1 ML VIAL] Med 05/02/21 16:38 Active 1 mg IV Q4H PRN PRN Methylprednis Sod Succ 125 mg* [solu-MEDROL] Med 05/02/21 11:53 Discontinued 125 mg .ROUTE .STK-MED ONE Methylprednis Sod Succ 125 mg* [solu-MEDROL] 125 mg Med 05/02/21 11:48 Discontinued Water For Injection,Sterile [Sterile H2O 10 ml] 2 ml IV STAT NaCl 0.9% 1000 ml [Sodium Chloride 0.9% 1000 ML] 1000 Med 05/02/21 11:53 Discontinued ml .ROUTE UD NaCl 0.9% 1000 ml [Sodium Chloride 0.9% 1000 ML] 1,000 Med 05/02/21 14:08 Discontinued ml .ROUTE UD NaCl 0.9% 1000 ml [Sodium Chloride 0.9% 1000 ML] 1,000 Med 05/02/21 17:00 Active ml IV 125 mls/hr NaCl 0.9% 1000 ml [Sodium Chloride 0.9% 1000 ML] 000 Med 05/02/21 11:48 Discontinued ml IV 999 mls/hr NaCl 0.9% 1000 ml [Sodium Chloride 0.9% 1000 ML] 1,000 Med 05/02/21 14:15 Discontinued ml IV 999 mls/hr Ondansetron HCl 4 mg/2 ml [Zofran 4 MG/2 ML VIAL] Med 05/02/21 16:38 Active 4 mg IV Q6H PRN PRN Remdesivir 100 mg Med 05/03/21 18:00 Active NaCl 0.9% 100Ml [Sodium Chloride 0.9% 100 ML BAG] 100 ml IV Q24H Remdesivir 200 mg Med 05/02/21 18:00 Active NaCl 0.9% 250 ml [Sodium Chloride 0.9% 250 ML] 250 ml IV ONCE Water For Injection,Sterile [Sterile H2O 10 ml] Med 05/02/21 11:53 Discontinued 10 ml IJ .STK-MED ONE Pulse Oximetry CONTINUOUS RT 05/02/21 17:12 Active Respiratory Therapy Consult ROUTINE RT 05/02/21 13:53 Completed Transfer Order Routine Transfer 05/02/21 Completed Code(s): U07.1 - COVID-19; J12.82 - PNEUMONIA DUE TO CORONAVIRUS DISEASE 2019
[2021-05-02] MEDS ORDERED: REMDESIVIR 200 MG in Sodium Chloride 0.9% 250 ML 250 ML IV ONE (18:00)
[2021-05-02] MEDS: Sodium Chloride 0.9% 1000 ML 1,000 ML IV SCH (18:47)
[2021-05-02 21:00] LABS: Eosinophil 3 % (0.00-3.0); Lymphocytes 55 % (24-44); Microcytosis 1+; Monocyte 3 % (0.0-12.0); Neutrophils 39 % (36.0-66.0); Platelet Estimate NORMAL (NORMAL); Total Cells Counted 100
[2021-05-02] MEDS: DESYREL 50 MG PO SCH (21:38)
[2021-05-02] MEDS: clonazePAM PO SCH (21:39)
[2021-05-02 23:29] LABS: NT PRO BNP 54.4 pg/mL (0-900)
[2021-05-03] MEDS: Tums EX 750 MG PO PRN ×2 (03:47→12:43)
[2021-05-03] MEDS: Sodium Chloride 0.9% 1000 ML 1,000 ML IV SCH ×3 (04:56→17:08)
[2021-05-03 06:16] LABS: Hematocrit 39.7 % (35-47); Hemoglobin 13.4 gm/dl (12.0-16.0); Mean Cell Volume 91.1 fl (78-100); Mean Corpuscular Hemoglobin 30.7 pg (26-32); Mean Corpuscular Hgb Concent. 33.8 g/dl (32-36); Mean Platelet Volume 10.3 fl (7.5-11.0); Platelet Count 203 K/mm3 (150-450); Red Blood Count 4.36 M/mm3 (4.1-5.4); Red Cell Distribution Width 12.8 % (11.5-14.0); White Blood Count 3.3 K/mm3 (4.0-10.5)
[2021-05-03 06:45] LABS: Slide Review YES
[2021-05-03 06:49] LABS: ALBUMIN 3.1 g/dL (3.5-5.0); ALKALINE PHOSPHATASE 91 U/L (38-126); ANION GAP 10.8 MEQ/L (5-15); BLOOD UREA NITROGEN 11 mg/dL (7-17); CHLORIDE 114 mmol/L (98-107); Calcium 7.2 mg/dL (8.4-10.2); Carbon Dioxide 24 mmol/L (22-30); Creatinine 1 0.74 mg/dL (0.52-1.04); EST GLOMERULAR FILTRATION RATE > 60.0 ML/MIN; Glucose 115 mg/dL (74-106); NT PRO BNP 934 pg/mL (0-900); Potassium 3.4 mmol/L (3.5-5.1); SGOT/AST 94 U/L (14-36); SGPT/ALT 68 U/L (0-35); SODIUM 145 mmol/L (137-145)
[2021-05-03] MEDS: DECADRON 10MG INJ. IV SCH (08:48)
[2021-05-03] MEDS: clonazePAM PO SCH ×3 (08:48→21:45)
[2021-05-03] MEDS: ENOXAPARIN SODIUM SQ SCH (08:48)
[2021-05-03] MEDS: HYDROCODONE-CHLORPHEN ER SUSP PO PRN (10:02)
[2021-05-03] MEDS: Zithromax 500 MG/ 250 ML NaCl Premix 500 MG/250 ML IVPB IV SCH (10:05)
[2021-05-03] MEDS: TYLENOL EXTRA STRENGTH 500 MG PO PRN ×2 (11:17→17:08)
[2021-05-03] MEDS: Ativan 1 MG PO PRN ×2 (12:10→17:08)
[2021-05-03] MEDS: Effexor XR 75 MG PO SCH (13:01)
[2021-05-03] MEDS: Protonix 40MG Tablet PO SCH (13:01)
[2021-05-03] MEDS: ESTRACE 1 MG PO SCH (13:01)
[2021-05-03] MEDS: NON-FORMULARY ITEM PO SCH (13:02)
[2021-05-03] MEDS: Pepcid 20 MG VIAL IV SCH ×2 (17:12→22:25)
[2021-05-03] MEDS: REMDESIVIR 100 MG in Sodium Chloride 0.9% 100 ML BAG 100 ML IV SCH (17:14)
[2021-05-03] MEDS: DESYREL 50 MG PO SCH (21:44)
[2021-05-04] MEDS: Sodium Chloride 0.9% 1000 ML 1,000 ML IV SCH ×3 (00:50→17:07)
[2021-05-04 06:21] LABS: Hematocrit 34.9 % (35-47); Hemoglobin 11.5 gm/dl (12.0-16.0); Mean Cell Volume 91.4 fl (78-100); Mean Corpuscular Hemoglobin 30.1 pg (26-32); Platelet Count 224 K/mm3 (150-450); Red Blood Count 3.82 M/mm3 (4.1-5.4); Red Cell Distribution Width 12.8 % (11.5-14.0); White Blood Count 7.1 K/mm3 (4.0-10.5)
[2021-05-04 06:45] LABS: ALBUMIN 2.4 g/dL (3.5-5.0); ALKALINE PHOSPHATASE 66 U/L (38-126); ANION GAP 7.2 MEQ/L (5-15); BLOOD UREA NITROGEN 11 mg/dL (7-17); CHLORIDE 115 mmol/L (98-107); Calcium 7.2 mg/dL (8.4-10.2); Carbon Dioxide 23 mmol/L (22-30); EST GLOMERULAR FILTRATION RATE > 60.0 ML/MIN; Glucose 96 mg/dL (74-106); Potassium 3.3 mmol/L (3.5-5.1); SGOT/AST 50 U/L (14-36); SGPT/ALT 51 U/L (0-35); SODIUM 142 mmol/L (137-145); Total Protein 4.9 g/dL (6.3-8.2)
[2021-05-04] MEDS: Protonix 40MG Tablet PO SCH (09:43)
[2021-05-04] MEDS: ENOXAPARIN SODIUM SQ SCH (09:43)
[2021-05-04] MEDS: DECADRON 10MG INJ. IV SCH (09:43)
[2021-05-04] MEDS: Pepcid 20 MG VIAL IV SCH ×2 (09:43→21:01)
[2021-05-04] MEDS: Ativan 1 MG PO PRN (09:43)
[2021-05-04] MEDS: HYDROCODONE-CHLORPHEN ER SUSP PO PRN (09:43)
[2021-05-04] MEDS: NON-FORMULARY ITEM PO SCH (09:44)
[2021-05-04] MEDS: ESTRACE 1 MG PO SCH (09:44)
[2021-05-04] MEDS: Effexor XR 75 MG PO SCH (09:45)
[2021-05-04] MEDS: clonazePAM PO SCH ×3 (09:47→21:01)
[2021-05-04] MEDS ORDERED: METHIMAZOLE PO SCH (10:00)
[2021-05-04] MEDS ORDERED: VENLAFAXINE HCL 100 MG PO SCH (10:00)
[2021-05-04] MEDS ORDERED: NON-FORMULARY ITEM (Estradiol [Estrace] 0.5 MG Tablet) PO SCH (10:00)
[2021-05-04] MEDS ORDERED: NON-FORMULARY ITEM (Omeprazole Magnesium [Prilosec Otc] 20 MG Tablet.Dr) PO SCH (10:00)
[2021-05-04] MEDS: REMDESIVIR 100 MG in Sodium Chloride 0.9% 100 ML BAG 100 ML IV SCH (17:07)
[2021-05-04] MEDS: DESYREL 50 MG PO SCH (21:00)
[2021-05-05] MEDS: Sodium Chloride 0.9% 1000 ML 1,000 ML IV SCH ×2 (03:18→20:39)
[2021-05-05 05:59] LABS: Hematocrit 34.2 % (35-47); Hemoglobin 11.4 gm/dl (12.0-16.0); Mean Cell Volume 91.2 fl (78-100); Mean Corpuscular Hemoglobin 30.4 pg (26-32); Mean Corpuscular Hgb Concent. 33.3 g/dl (32-36); Mean Platelet Volume 10.1 fl (7.5-11.0); Platelet Count 223 K/mm3 (150-450); Red Blood Count 3.75 M/mm3 (4.1-5.4); Red Cell Distribution Width 12.7 % (11.5-14.0); White Blood Count 6.4 K/mm3 (4.0-10.5)
[2021-05-05 06:07] LABS: ALBUMIN 2.5 g/dL (3.5-5.0); ALKALINE PHOSPHATASE 60 U/L (38-126); ANION GAP 6.2 MEQ/L (5-15); BLOOD UREA NITROGEN 12 mg/dL (7-17); CHLORIDE 114 mmol/L (98-107); Calcium 7.3 mg/dL (8.4-10.2); Carbon Dioxide 24 mmol/L (22-30); Creatinine 1 0.57 mg/dL (0.52-1.04); EST GLOMERULAR FILTRATION RATE > 60.0 ML/MIN; Glucose 96 mg/dL (74-106); SGOT/AST 33 U/L (14-36); SGPT/ALT 44 U/L (0-35); SODIUM 142 mmol/L (137-145)
[2021-05-05 06:15] LABS: Potassium 2.9 mmol/L (3.5-5.1)
[2021-05-05] MEDS: POTASSIUM CHLORIDE 20 mEq IN WATER 100ML 20 MEQ/100 ML BAG IV SCH ×2 (06:27→08:13)
[2021-05-05 07:43] LABS: Slide Review YES
[2021-05-05] MEDS: clonazePAM PO SCH ×3 (08:32→21:15)
[2021-05-05] MEDS: DECADRON 10MG INJ. IV SCH (08:32)
[2021-05-05] MEDS: Protonix 40MG Tablet PO SCH (08:32)
[2021-05-05] MEDS: Pepcid 20 MG VIAL IV SCH ×2 (08:32→21:15)
[2021-05-05] MEDS: Effexor XR 75 MG PO SCH (08:34)
[2021-05-05] MEDS: ENOXAPARIN SODIUM SQ SCH (08:35)
[2021-05-05] MEDS: ESTRACE 1 MG PO SCH (08:35)
[2021-05-05] MEDS: NON-FORMULARY ITEM PO SCH (08:36)
[2021-05-05] MEDS: REMDESIVIR 100 MG in Sodium Chloride 0.9% 100 ML BAG 100 ML IV SCH (18:33)
[2021-05-05] MEDS: DESYREL 50 MG PO SCH (21:16)
[2021-05-06 05:47] LABS: Hematocrit 35.7 % (35-47); Hemoglobin 11.7 gm/dl (12.0-16.0); Mean Cell Volume 93.5 fl (78-100); Mean Corpuscular Hemoglobin 30.6 pg (26-32); Mean Corpuscular Hgb Concent. 32.8 g/dl (32-36); Mean Platelet Volume 10.3 fl (7.5-11.0); Platelet Count 233 K/mm3 (150-450); Red Blood Count 3.82 M/mm3 (4.1-5.4); Red Cell Distribution Width 12.6 % (11.5-14.0); White Blood Count 6.3 K/mm3 (4.0-10.5)
[2021-05-06 06:03] LABS: ALBUMIN 2.4 g/dL (3.5-5.0); ALKALINE PHOSPHATASE 57 U/L (38-126); ANION GAP 8.6 MEQ/L (5-15); BLOOD UREA NITROGEN 9 mg/dL (7-17); CHLORIDE 109 mmol/L (98-107); Calcium 7.1 mg/dL (8.4-10.2); Carbon Dioxide 23 mmol/L (22-30); Creatinine 1 0.58 mg/dL (0.52-1.04); EST GLOMERULAR FILTRATION RATE > 60.0 ML/MIN; Glucose 86 mg/dL (74-106); SGOT/AST 44 U/L (14-36); SGPT/ALT 48 U/L (0-35); SODIUM 138 mmol/L (137-145); Total Protein 4.8 g/dL (6.3-8.2)
[2021-05-06 06:19] LABS: Potassium 2.9 mmol/L (3.5-5.1)
[2021-05-06] MEDS: POTASSIUM CHLORIDE 20 mEq IN WATER 100ML 20 MEQ/100 ML BAG IV SCH ×2 (06:25→08:15)
[2021-05-06] MEDS: Sodium Chloride 0.9% 1000 ML 1,000 ML IV SCH ×2 (06:29→08:49)
[2021-05-06] MEDS: ENOXAPARIN SODIUM SQ SCH (08:53)
[2021-05-06] MEDS: Pepcid 20 MG VIAL IV SCH (08:54)
[2021-05-06] MEDS: Protonix 40MG Tablet PO SCH (08:54)
[2021-05-06] MEDS: HYDROCODONE-CHLORPHEN ER SUSP PO PRN (08:54)
[2021-05-06] MEDS: DECADRON 10MG INJ. IV SCH (08:54)
[2021-05-06] MEDS: Effexor XR 75 MG PO SCH (08:55)
[2021-05-06] MEDS: ESTRACE 1 MG PO SCH (08:55)
[2021-05-06] MEDS: clonazePAM PO SCH (08:55)
[2021-05-06] MEDS: NON-FORMULARY ITEM PO SCH (08:56)
[2021-05-06 11:58] VITALS: BP 131/41; O2SAT 93
--- NOTE | 2021-05-06 13:48 | DS ---
ADMISSION DIAGNOSES: 1) COVID gastroenteritis. 2) Dehydration. 3) Hypokalemia. 4) COVID pneumonia. DISCHARGE DIAGNOSES: 1) COVID GASTROENTERITIS. 2) DEHYDRATION. 3) HYPOKALEMIA. 4) COVID PNEUMONIA. HOSPITAL COURSE: The patient came in with mostly severe fatigue, nausea, vomiting which stopped pretty quickly. Potassium was low and took numerous potassium riders to get it elevated. D-dimer was not terribly elevated and stayed around 700. She was actually off oxygen by the end of the . Her general problem was severe achiness and unable to ambulate and abdominal pain. The white count was 4,000 and then went up. Potassium the day before discharge was only 2.9. She completed the potassium riders and potassium that had been called back to me she will be discharged with a normal potassium. Today when I discharged her she was alert, orientated, walking, eating, feeling much better. She will be discharged home on her home medications plus potassium 10 mEq q.d. and to follow up with her home doctor in one week. She has never had much of a COVID pneumonia. Chest x-ray showed very small interstitial infiltrate on one side. She only required oxygen for one night. Most of this was GI and weakness.
[2021-05-06 14:12] VITALS: PULSE 63
== END 2021-05-06 14:34 | disposition home or self-care (01) | DRG 177 ==
LOC: ED 11:22 → MED SURG 16:04
PROVIDERS: ADMIT General Practice; ATTEND Family Medicine
DX: U07.1 COVID-19 (principal); J12.82 Pneumonia due to coronavirus disease 2019; K52.9 Noninfective gastroenteritis and colitis, unspecified; E86.0 Dehydration; E87.6 Hypokalemia; I95.9 Hypotension, unspecified; Z79.899 Other long term (current) drug therapy
CPT/HCPCS: 36000; 36415; 71045; 80053; 81001; 83605; 83735; 83880; 84132; 84484; 85025; 85027; 85379; 85610; 87040; 87086; 87400; 94762; 96360; 96372; 96374; 99285; J0248; J0456; J1100; J1650; J2930; J3480; A9270-GY

== ENCOUNTER 2023-06-03 16:44 | Emergency (ER) | payer BC ==
--- NOTE | 2023-06-03 16:58 | ERPHSYRPT ---
- History of Present Illness Time Seen by Provider: 06/03/23 16:58 Source: patient, family Exam Limitations: no limitations Physician History: This is a 58-year-old white female patient who recently had new dentures made for her and has a history of anxiety gastroesophageal reflux disease and presents to the emergency department with a food bolus stuck in her esophagus. Patient ate [place] food (steak). She can feel it stuck in her esophagus. She is unable to drink liquids or eat even yogurt since this occurred at approximately 3 PM this afternoon. She has had to have endoscopy for similar situation approximately 2 to 3 years ago. Patient has no respiratory compromise. She denies chest pain. Timing/Duration: today Severity: moderate Modifying Factors: Improves With: other (Swallowing liquids) Associated Symptoms: other (Spits up liquid that she is swallowing), No shortness of breath, No chest pain Allergies/Adverse Reactions: No Known Drug Allergies Allergy (Verified 05/02/21 16:34) Home Medications: Venlafaxine HCl [Effexor] 300 mg PO DAILY 04/10/13 [History] Omeprazole Magnesium [Prilosec Otc] 20 mg PO DAILY 05/02/21 [History] Trazodone HCl 50 mg [Desyrel 50 mg] 100 mg PO QHS 05/02/21 [History] clonazePAM [Clonazepam] 1 mg PO TID 05/02/21 [History] Hx Tetanus, Diphtheria Vaccination/Date Given: No Hx Influenza Vaccination/Date Given: No Hx Pneumococcal Vaccination/Date Given: No Travel Risk - International Travel Have you traveled outside of the country in past 3 weeks: No - Coronavirus Screening Are you exhibiting any of the following symptoms?: No Close contact with a COVID-19 positive Pt in past 14-21 Days: No - Vaccine Status Have you recieved a Covid-19 vaccination: No - Review of Systems Constitutional: No Symptoms Eyes: No Symptoms Ears, Nose, & Throat: No Symptoms Respiratory: No Symptoms Cardiac: No Symptoms Abdominal/Gastrointestinal: Other (Patient is spitting up liquids that she has recently swallowed. She is unable to swallow liquids.) Genitourinary Symptoms: No Symptoms Musculoskeletal: No Symptoms Skin: No Symptoms Neurological: No Symptoms Psychological: No Symptoms Endocrine: No Symptoms Hematologic/Lymphatic: No Symptoms Immunological/Allergic: No Symptoms All Other Systems: Reviewed and Negative - Past Medical History Pertinent Past Medical History: Yes Neurological History: No Pertinent History ENT History: No Pertinent History Cardiac History: No Pertinent History Respiratory History: No Pertinent History Endocrine Medical History: Hypothyroidism Musculoskeletal History: Osteoarthritis GI Medical History: GERD History: No Pertinent History Psycho-Social History: Anxiety, Depression Female Reproductive Disorders: No Pertinent History Other Medical History: hx of skin cancer. - Past Surgical History Past Surgical History: Yes Neuro Surgical History: No Pertinent History Cardiac: No Pertinent History Respiratory: No Pertinent History Gastrointestinal: No Pertinent History Genitourinary: No Pertinent History Musculoskeletal: No Pertinent History Female Surgical History: Section, Hysterectomy Other Surgical History: Broken nose with surgery, Left shoulder plate due to broken scapula - Social History Smoking Status: Never smoker Exposure to second hand smoke: No Drug Use: none Patient Lives Alone: No - Nursing Vital Signs Nursing Vital Signs: Initial Vital Signs Temperature 98.4 F 06/03/23 16:49 Pulse Rate 95 H 06/03/23 16:49 Respiratory Rate 24 06/03/23 16:49 Blood Pressure 127/101 06/03/23 16:49 O2 Sat by Pulse Oximetry 98 06/03/23 16:49 Pain Scale Pain Intensity 0 - Physical Exam General Appearance: no apparent distress, alert, anxiety Eye Exam: PERRL/EOMI, eyes nml inspection Ears, Nose, Throat Exam: moist mucous membranes, other Neck Exam: normal inspection (Loose dentures), non-tender, supple, full range of motion Respiratory Exam: normal breath sounds, lungs clear, airway intact, No chest tenderness, No respiratory distress Cardiovascular Exam: regular rate/rhythm, normal heart sounds, normal peripheral pulses Gastrointestinal/Abdomen Exam: soft, normal bowel sounds, No tenderness Pelvic Exam: not done Rectal Exam: not done Back Exam: normal inspection, normal range of motion, No CVA tenderness, No vertebral tenderness Extremity Exam: normal inspection, normal range of motion, pelvis stable Neurologic Exam: alert, oriented x 3, cooperative, 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, nml cerebellar function, nml station & gait Skin Exam: normal color, warm, dry Lymphatic Exam: No adenopathy SpO2 Interpretation: normal O2 Delivery: Room Air - Course Nursing assessment & vital signs reviewed: Yes Ordered Tests: Medication Summary Discontinued Medications Generic Name Dose Route Start Last Admin Trade Name Freq PRN Reason Stop Dose Admin Glucagon 1 mg 06/03/23 17:08 06/03/23 17:13 Glucagon 1 Mg/Vial Vial IM 06/03/23 17:09 1 mg STAT ONE Administration Glucagon Confirm 06/03/23 17:10 Glucagon 1 Mg/Vial Vial Administered 06/03/23 17:11 Dose 1 mg .ROUTE .STK-MED ONE - Progress Progress: unchanged Progress Note: 06/03/23 18:26 Patient's medical issue here in the emergency department is 1 of low complexity. The level of complexity in the workup performed is based on review of the patient's past medical history, review of the patient's medication list, review of the patient's drug allergy list, history present illness and physical findings on examination. No laboratory radiographic studies are necessary in this patient. We are providing her with 1 mg intramuscular glucagon followed by a reattempt at cola ingestion. If this is unsuccessful, we will contact surgery to have the patient undergo endoscopy to evaluate for and remove food bolus in the esophagus. 06/03/23 18:40 I spoke with general surgeon Dr. Cruz who will make arrangements for upper endoscopy and removal of presumed esophageal food bolus. Counseled pt/family regarding: diagnosis Medical Desision Making - Risk of complications Minimal Risk: Minimal risk of morbidity - Departure Clinical Impression: Esophageal obstruction due to food impaction Condition: Stable Critical Care Time: No Referrals: BEKAH AYALA DO [NON-STAFF PHY W/O PRIVILEGES] - Follow up/PCP as directed
[2023-06-03 16:59] VITALS: TEMP 98.4
[2023-06-03] MEDS ORDERED: GlucaGen 1 MG ONE (17:10)
[2023-06-03] MEDS: GlucaGen 1 MG IM ONE (17:13)
[2023-06-03 19:28] VITALS: BP 127/101
[2023-06-03] MEDS ORDERED: Lactated Ringers 1,000 ML IV ONE (19:49)
[2023-06-03] MEDS: Lactated Ringers 1,000 ML IV SCH (19:51)
[2023-06-03] MEDS ORDERED: Quelicin Fliptop 200 MG/10 ML ONE (19:53)
[2023-06-03] MEDS ORDERED: DIPRIVAN 200 MG/20 ML IV ONE (19:54)
[2023-06-03] MEDS ORDERED: SUBLIMAZE 100 MCG/2 ML ONE (19:54)
[2023-06-03] MEDS ORDERED: Versed 2 MG/2 ML Injection ONE (19:54)
[2023-06-03] MEDS: PROVENTIL 2.5 MG/3 ML NEB IH ONE (20:41)
[2023-06-03 20:43] VITALS: PULSE 83; RESP 20; O2SAT 95
--- NOTE | 2023-06-04 10:05 | OP ---
SURGERY DATE/TIME: 06/03/20231999 PREOPERATIVE DIAGNOSIS: Lodged foreign body in esophagus. POSTOPERATIVE DIAGNOSIS: Lodged foreign body in esophagus. PROCEDURE: EGD with dislodgement of foreign body. SURGEON: Lawson Cruz M.D. ANESTHESIA: General. COMPLICATIONS: None. CONDITION: Stable. DESCRIPTION OF PROCEDURE: The patient is taken to endoscopy. As this was a lodged food bolus endotracheal intubation was performed by anesthesia. The scope is placed down and between 30 and 35 cm, a 7 x 4 cm lodged food bolus was grasped with a snare and extracted totally. Scope reintroduced. Aperture was about a size 48. It was satisfactory. There was certainly some irritation. Fundus, body and antrum normal. Pylorus was open. Scope withdrawn looped upon itself. Nothing additional. Scope withdrawn. IMPRESSION: The patient had an episode four or five years ago and it was from steak and this episode was from steak. She basically needs to chew more although she is fairly edentulous, I believe.
== END 2023-06-03 21:05 | disposition home or self-care (01) ==
LOC: ED 16:44
DX: T18.128A Food in esophagus causing other injury, initial encounter (principal); W44.F3XA Food entering into or through a natural orifice, initial encounter; Z79.899 Other long term (current) drug therapy; Z28.310 Unvaccinated for COVID-19
CPT/HCPCS: 43247; 94640; 96372; 99283; J0330; J1610; J2250; J2704; J3010; J7609; A9270-GY